=== PATIENT | male | born 1985 | race Caucasian/White ===

== ENCOUNTER 2019-06-23 06:05 | Day surgery (SDC) | payer OTHER ==
--- NOTE | 2019-06-21 10:15 | NUR ---
LAB RESULTS OBTAINED FROM [facility] DONE 06-14-2019. REVIEWED WITH DR SHEPARD ANESTHESIOLOGIST. MAY USE THESE RESULTS FOR SURGERY, NO NEED TO REDRAW.
[~2019-06-23] VITALS: Ht 182.9 cm; Wt 99.8 kg
[2019-06-23 06:50] VITALS: BP 132/70
[2019-06-23 12:23] VITALS: BP 128/67
== END 2019-06-23 11:45 | disposition home or self-care (01) ==
LOC: DS 06:05 → OR 07:30 → DS 07:30
DX: S82.831A Other fracture of upper and lower end of right fibula, initial encounter for closed fracture (principal); M25.374 Other instability, right foot; Z79.899 Other long term (current) drug therapy; Z98.890 Other specified postprocedural states; W18.39XA Other fall on same level, initial encounter; Y93.51 Activity, roller skating (inline) and skateboarding; Y92.89 Other specified places as the place of occurrence of the external cause; Y99.8 Other external cause status
CPT/HCPCS: C1713; J0690; J1170; J2250; J2405; J2704; J3010; J3490; J7120; Q0092